=== PATIENT | female | born 1995 | race Two or more races ===

== ENCOUNTER 2017-05-28 11:07 | Outpatient (CLI) | payer OTHER | END 2017-05-28 17:00 | disposition home or self-care (01) | LOC: SONOGRAMA 11:07 | DX: N64.89 Other specified disorders of breast (principal) ==

== ENCOUNTER → 2017-07-23 | Outpatient (CLI) | payer OTHER | END | disposition home or self-care (01) | LOC: PPH VACUNA 11:23 | DX: Z23 Encounter for immunization (principal) ==